=== PATIENT | male | born 1990 | race Caucasian/White ===

== ENCOUNTER 2016-06-18 19:21 | Emergency (ER) | payer MEDICAID ==
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
[2016-06-18 20:35] LABS: Hematocrit 47.6 % (42.0-52.0); Hemoglobin 15.6 gm/dL (13.5-18.0); Mean Cell Volume 89.6 fl (78-100); Mean Corpuscular Hemoglobin 29.4 pg (27-31); Mean Corpuscular Hgb Conc 32.8 g/dl (32-36); Neutrophil # 3.9 K/mm3 (1.3-6.0); Neutrophil % 60.9 % (42-75.0); Platelet Count 223 K/mm3 (150-450); Red Blood Count 5.31 M/mm3 (4.7-6.0); Red Cell Distribution Width 12.3 % (11.5-14.0); White Blood Count 6.5 K/mm3 (4.0-10.5)
--- OUTSIDE RECORDS SUMMARY | 2016-06-18 20:46 | XMS REPORT | Continuity of Care Document ---
:1990 Author Organization [facility] ([facility]) Address [address] [place] [address] Phone [phone] Care Team Providers Name Role Phone Rose Mary Chin Primary Care Provider [phone] Source Comments This disclosure is being made pursuant to the Care Everywhere program, applicable federal and state laws, and may not contain all informaitonavailable regarding this patient.[facility] ([facility]) Active Allergies and Adverse Reactions No Active Allergies Current Medications Not on file Active Problems Problem Noted Date Hypertrophy of breast 04/21/2006 Social History Tobacco Use Types Packs/Day Years Used Date Never Assessed Last Filed Vital Signs Vital Sign Reading Time Taken Blood Pressure 136/57 04/21/2006 1:53 PM AIRPLANE AND ENGINE INSPECTOR Pulse 83 04/21/2006 1:53 PM AIRPLANE AND ENGINE INSPECTOR Temperature 35.6 C (96.08 F) 04/21/2006 1:53 PM AIRPLANE AND ENGINE INSPECTOR Respiratory Rate 28 04/21/2006 1:53 PM AIRPLANE AND ENGINE INSPECTOR Height 1.747 m (5' 8.77") 04/21/2006 1:53 PM AIRPLANE AND ENGINE INSPECTOR Weight 143.396 kg (316 lb 2.1 oz) 04/21/2006 1:53 PM AIRPLANE AND ENGINE INSPECTOR Body Mass Index 46.98 04/21/2006 1:53 PM AIRPLANE AND ENGINE INSPECTOR Oxygen Saturation - - Plan of Care Health Maintenance Due Date Last Done Comments Hepatitis B Vaccine (1 of 3 - Primary Series) 1990 Tdap Vaccine 01/04/2000 Lipid Disorder Screening 2007 MMR Vaccine 2007 Td Vaccine 2007 Varicella Vaccine (1 of 2 - Adult - No Evidence of 2007 Immunity) Influenza Vaccine: Seasonal (#1) 12/11/2015 Results from Last 3 Months Not on file
[2016-06-18 20:57] LABS: ALT 26 U/L (19-67); AST 17 U/L (0-48); Alkaline Phosphatase * 77 U/L (50-170); Anion Gap 10.6 mmol/L (6.8-13.8); Bilirubin, Total 0.3 mg/dL (0.0-1.1); Blood Urea Nitrogen 14 mg/dL (6-23); Ca. Corrected For Albumin 8.6 mg/dL (8.4-10.2); Calcium * 8.9 mg/dL (7.9-10.9); Carbon Dioxide 30.1 mmol/L (24-32.6); Chloride 105 mmol/L (97-106); Glucose * 102 mg/dL (70-110); Potassium 3.7 mmol/L (3.4-4.6); Salicylate Less than 2.8 mg/dL (2.8-20.0); Sodium 142 mmol/L (132-142); TSH * 0.738 uIU/mL (0.358-3.74); Total Protein 7.2 gm/dL (6.2-8.2)
[2016-06-18 21:06] LABS: Urine Bilirubin Negative (NEGATIVE); Urine Blood Negative /ul (NEGATIVE); Urine Ketone Negative (NEGATIVE); Urine Nitrite Negative (NEGATIVE); Urine Protein Negative (NEGATIVE); Urine Urobilinogen Normal (NORMAL)
[2016-06-18 21:19] LABS: Cocaine Ur Negative (NEGATIVE); Urine Barbiturate Negative (NEGATIVE); Urine Benzodiazepines Negative (NEGATIVE); Urine Opiates Negative (NEGATIVE); Urine PCP Negative (NEGATIVE)
[2016-06-18 21:22] LABS: Urine THC Positive (NEGATIVE)
[2016-06-18 21:28] LABS: Urine Appearance Clear; Urine Color Yellow
[2016-06-18 21:29] LABS: Urine Bacteria None Seen; Urine RBC None Seen /hpf (0-5); Urine WBC None Seen /hpf (0-5)
[2016-06-18 21:30] LABS: Urine Mucus Many - 3+
[2016-06-19] MEDS ORDERED: LORazepam 1 MG TABLET PO ONE ×2 (01:04→02:13)
[2016-06-19] MEDS ORDERED: LORazepam 1 MG TABLET ONE ×2 (01:16→02:13)
[2016-06-19 02:18] VITALS: BP 131/91
== END 2016-06-19 02:38 | disposition short-term general hospital (02) ==
LOC: ER 19:21
DX: F22 Delusional disorders (principal)
CPT/HCPCS: 36415; 80053; 80307; 81001; 84443; 85025; 99284; G0480; G0481

== ENCOUNTER 2016-09-19 18:59 | Emergency (ER) | payer MEDICAID ==
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
--- OUTSIDE RECORDS SUMMARY | 2016-09-19 19:28 | XMS REPORT | Continuity of Care Document ---
:1990 Author Organization [facility] ([facility]) Address [place] [address] Phone [phone] Care Team Providers Name Role Phone Rose Mary Chin Primary Care Provider [phone] Source Comments This disclosure is being made pursuant to the Care Everywhere program, applicable federal and state laws, and may not contain all informaitonavailable regarding this patient.[facility] ([facility]) Active Allergies and Adverse Reactions No Active Allergies Current Medications Not on file Active Problems Problem Noted Date Hypertrophy of breast 04/21/2006 Social History Tobacco Use Types Packs/Day Years Used Date Never Assessed Last Filed Vital Signs Vital Sign Reading Time Taken Blood Pressure 136/57 04/21/2006 1:53 PM WEIGHT CALLER Pulse 83 04/21/2006 1:53 PM WEIGHT CALLER Temperature 35.6 C (96.08 F) 04/21/2006 1:53 PM WEIGHT CALLER Respiratory Rate 28 04/21/2006 1:53 PM WEIGHT CALLER Height 1.747 m (5' 8.77") 04/21/2006 1:53 PM WEIGHT CALLER Weight 143.396 kg (316 lb 2.1 oz) 04/21/2006 1:53 PM WEIGHT CALLER Body Mass Index 46.98 04/21/2006 1:53 PM WEIGHT CALLER Oxygen Saturation - - Plan of Care [...]
[2016-09-19 20:02] LABS: Hematocrit 49.4 % (42.0-52.0); Hemoglobin 16.6 gm/dL (13.5-18.0); Mean Cell Volume 86.8 fl (78-100); Mean Corpuscular Hemoglobin 29.2 pg (27-31); Mean Corpuscular Hgb Conc 33.6 g/dl (32-36); Mean Platelet Volume 9.8 fl (6.0-9.5); Neutrophil # 3.3 K/mm3 (1.3-6.0); Neutrophil % 65.9 % (42-75.0); Platelet Count 187 K/mm3 (150-450); Red Blood Count 5.69 M/mm3 (4.7-6.0); Red Cell Distribution Width 12.6 % (11.5-14.0); White Blood Count 4.9 K/mm3 (4.0-10.5)
[2016-09-19 20:26] LABS: ALT 26 U/L (19-67); AST 21 U/L (0-48); Albumin * 3.8 gm/dl (3.4-5.0); Alkaline Phosphatase * 79 U/L (50-170); Anion Gap 14.7 mmol/L (6.8-13.8); Bilirubin, Total 0.6 mg/dL (0.0-1.1); Blood Urea Nitrogen 10 mg/dL (6-23); Calcium * 9.2 mg/dL (7.9-10.9); Carbon Dioxide 28.2 mmol/L (24-32.6); Chloride 103 mmol/L (97-106); Glucose * 101 mg/dL (70-110); Potassium 3.9 mmol/L (3.4-4.6); Salicylate Less than 2.8 mg/dL (2.8-20.0); Sodium 142 mmol/L (132-142); TSH * 1.106 uIU/mL (0.358-3.74); Total Protein 6.9 gm/dL (6.2-8.2)
[2016-09-19 20:38] LABS: Urine Bilirubin Negative (NEGATIVE); Urine Blood Negative /ul (NEGATIVE); Urine Ketone Negative (NEGATIVE); Urine Nitrite Negative (NEGATIVE); Urine Protein Negative (NEGATIVE); Urine Specific Gravity <=1.005 SP.GR. (1.005-1.030); Urine Urobilinogen Normal (NORMAL); Urine pH 6.5 pH (5.0-7.0)
[2016-09-19 20:39] LABS: Cocaine Ur Negative (NEGATIVE); Urine Barbiturate Negative (NEGATIVE); Urine Benzodiazepines Negative (NEGATIVE); Urine Opiates Negative (NEGATIVE); Urine PCP Negative (NEGATIVE)
[2016-09-19 20:40] LABS: Urine THC Positive (NEGATIVE)
[2016-09-19 20:45] LABS: Urine Appearance Clear; Urine Bacteria TRACE; Urine Color Yellow; Urine Mucus TRACE; Urine RBC None Seen /hpf (0-5); Urine WBC None Seen /hpf (0-5)
[2016-09-20 05:53] LABS: Hematocrit 50.1 % (42.0-52.0); Hemoglobin 16.8 gm/dL (13.5-18.0); Mean Corpuscular Hemoglobin 29.2 pg (27-31); Mean Corpuscular Hgb Conc 33.5 g/dl (32-36); Neutrophil # 4.6 K/mm3 (1.3-6.0); Neutrophil % 66.2 % (42-75.0); Platelet Count 212 K/mm3 (150-450); Red Blood Count 5.76 M/mm3 (4.7-6.0); Red Cell Distribution Width 12.6 % (11.5-14.0)
[2016-09-20 06:13] LABS: ALT 27 U/L (19-67); AST 22 U/L (0-48); Albumin * 3.9 gm/dl (3.4-5.0); Alkaline Phosphatase * 83 U/L (50-170); BUN/Creatinine Ratio 9.3 (9.0-21.6); Bilirubin, Total 0.7 mg/dL (0.0-1.1); Blood Urea Nitrogen 9 mg/dL (6-23); Ca. Corrected For Albumin 8.9 mg/dL (8.4-10.2); Calcium * 9.1 mg/dL (7.9-10.9); Carbon Dioxide 30.7 mmol/L (24-32.6); Chloride 102 mmol/L (97-106); Glucose * 97 mg/dL (70-110); Potassium 3.7 mmol/L (3.4-4.6); Salicylate Less than 2.8 mg/dL (2.8-20.0); Sodium 142 mmol/L (132-142); TSH * 2.053 uIU/mL (0.358-3.74); Total Protein 7.2 gm/dL (6.2-8.2)
[2016-09-20] MEDS ORDERED: ZIPRASIDONE HCL 20 MG CAPSULE PO ONE (09:07)
[2016-09-20] MEDS ORDERED: ZIPRASIDONE HCL 20 MG CAPSULE ONE (09:47)
--- NOTE | 2016-09-20 13:33 | ERNOTE ---
Psychological HPI - Date Date of Service: 09/20/16 - General Chief Complaint: Psychiatric Problem Source: Reports: patient, RN/MD, RN notes reviewed Exam Limitations: Reports: no limitations - Immun/Allergies/Home Medications Allergies/Adverse Reactions: Allergies No Known Allergies Allergy (Verified 09/19/16 19:07) Home Medications: HOME MEDICATIONS Adderall 06/18/16 [Last Taken Unknown] Ativan 06/18/16 [Last Taken Unknown] Lamotrigine 06/18/16 [Last Taken Unknown] Omeprazole 06/18/16 [Last Taken Unknown] - History of Present Illness Narrative: Patient presented to ED last night making suicidal statements and extreme irritability. Time Seen by Provider: 09/19/16 19:14 Date (Duration): 09/20/16 Time (Timing): 12:40 Onset/duration: Reports: intermittent Intent: Reports: prior thoughts of suicide, wants to escape Situational Problems: Reports: other - Lives with mother who is disabled. Associated Symptoms: Reports: agitated, hostile, suicidal thoughts Prior Treament: Reports: treated by physician, recently hospitalized, similar symptoms before - Patient states that he has not seen a psychiatrist on a regular basis since Dr. Wren was here. Has been getting psychotropic medications from psychiatrists when IP and PCP. Review of Systems - Narrative Narrative: Patient is quite manic. Speech is rapid and tangential. Admits to racing thoughts, lack of sleep, irritability and anger. States that he was prescribed Haldol while IP and was told to take it but not the Ativan. States that PCP told him to take Ativan. He was confused so wasn't taking any of his medications correctly. PCP is also prescribing him Seroquel 300 mg at hs and Adderall 30 mg twice a day. Has some grandiose delusions but have lessened since injection of Geodon. Denies any hallucinations. Denies any depression. States that he gets "over dramatic" and makes threats of suicide when he gets angry but states that he does not mean it and does not actually wish to . Acknowledges need for medication management and states that both he and his mother have said that he needs to be back on a mood stabilizer. - Review of Systems Psych: Present: See HPI - Narrative Narrative: Discussed past psychiatric care and current psychiatric care. Is not established with a psychiatrist, PCP has been managing his medications. He states that he used to take Trileptal and it worked well for anger and mood swings. He denies that he has a diagnosis of bipolar, states that it is just extreme anger and ADHD. - Patient's Past Medical History Patient History - Medical: No pertinent hx, ADHD, Other Patient History - Cardiac/Respiratory: No pertinent hx Patient History - Cancer: No Hx of Cancer Patient History - Surgical Procedures: T & A Patient History - Other: None - Social History Living Situations: home Abuse History: No History of abuse Smoking Status: Never smoker Alcohol Use: none Drug Use: none - Immunizations Immunizations Up to Date: Yes Physical Exam - Physical Exam General Appearance: Present: wd/wn, alert, mild distress, anxious, irritable Neurological Exam: Present: alert, oriented - Exhibiting signs of alfredo: Pressured, rapid speech, tangential thought process, mild grandoise delusions, increased irritability and anger, impulsivity. ED Progress - Date and Time Seen: Date and Time: 09/20/16 13:29 Discussed R/B/SE of medications. Will continue patient on Quetiapine 300 mg po qhs, Lorazepam 1 mg QID PRN for anxiety, discontinue Haloperidol, hold Adderall until psychiatry appointment and start on Oxcarbazepine 300 mg po BID. Written instructions provided. Followup appointment time provided. Patient voices understanding. I do not feel that patient is an immediate danger to himself or others and that hold should be lifted so he can be discharged to his home. Grinding And Polishing Laborer Analia notified of my recommendations and stated that court ordered hold can be lifted at this time. - Vital Signs Vital Signs: Vital Signs 09/20/16 05:52 Temperature 36.2 C L Pulse Rate 88 Respiratory 18 Rate Blood Pressure 165/89 O2 Sat by Pulse 98 Oximetry - Progress/Reassessment Chief Complaint: Psychiatric Problem Progress:: Improved - Follow up appointment with Deepa CORDON on 09/26/16 at 1pm. Departure Clinical Impression: Suicidal behavior Qualifiers: Attempted self-injury: without attempted self-injury Qualified Code(s): R46.89 - Other symptoms and signs involving appearance and behavior - Departure
[2016-09-20 14:11] VITALS: BP 129/70
== END 2016-09-20 14:07 | disposition home or self-care (01) ==
LOC: ER 18:59
DX: R46.89 Other symptoms and signs involving appearance and behavior (principal)
CPT/HCPCS: 36415; 80053; 80307; 81001; 84443; 85025; 99282; 99285; G0480; G0481

== ENCOUNTER 2016-11-06 04:55 | Emergency (ER) | payer MEDICAID ==
--- NOTE | 2016-11-06 05:38 | ERNOTE ---
<Flynn Thomas - Last Filed: 11/06/16 08:00> Psychological HPI - General Chief Complaint: Psychiatric Problem Source: Reports: patient Exam Limitations: Reports: no limitations - Immun/Allergies/Home Medications Allergies/Adverse Reactions: Allergies No Known Allergies Allergy (Verified 11/06/16 05:35) Home Medications: HOME MEDICATIONS Adderall 06/18/16 [Last Taken Unknown] Ativan 06/18/16 [Last Taken Unknown] Lamotrigine 06/18/16 [Last Taken Unknown] Omeprazole 06/18/16 [Last Taken Unknown] OXcarbazepine [Trileptal] 300 mg PO BID #60 tab 11/06/16 [Last Taken Unknown] QUEtiapine FUMARATE [Seroquel] 300 mg PO HS #30 tablet 11/06/16 [Last Taken Unknown] - History of Present Illness Narrative: Pt's mom called law enforcement stating that the patient was "out of control" and had a knife. Pt then called LE and said that if any officers came into the house he would kill them. Upon arrival pt had a grapple skidder operator knife and was easily able to be talked down and he put the knife down. Pt did come to the ER willingly after law enforcement talked to him for 45 minutes. Pt is delusional stating that he is a genius and that his home life stops him from using his genius in anything constructive so that drives him crazy. He states that he would rather than continue to live under these conditions. Pt has been in this ED under similar conditions. Time Seen by Provider: 11/06/16 05:21 Arrived by: Reports: police Onset/duration: Reports: intermittent, continues in ED Intent: Reports: wants to escape - the world or his life Situational Problems: Reports: parents Associated Symptoms: Reports: angry, frustrated, agitated, paranoid Prior Treament: Reports: similar symptoms before Review of Systems - Review of Systems Constitutional: Present: no symptoms reported EYE: Present: no symptoms reported ENT: Present: no symptoms reported Respiratory: Absent: shortness of breath Cardiology: Absent: chest pain Gastrointestinal/Abdominal: Present: no symptoms reported Genitourinary: Present: no symptoms reported Musculoskeletal: Present: no symptoms reported Skin: Present: no symptoms reported Neurological: Present: depressed, emotional problems Endocrine: Present: no symptoms reported Hematologic/Lymphatic: Present: no symptoms reported Psych: Present: See HPI - Patient's Past Medical History Patient History - Medical: ADHD, GERD Patient History - Cardiac/Respiratory: No pertinent hx Patient History - Cancer: No Hx of Cancer Patient History - Surgical Procedures: T & A Patient History - Other: None - Social History Living Situations: home Abuse History: No History of abuse Psych History: No pertinent hx Smoking Status: Never smoker Alcohol Use: none Drug Use: none - Immunizations Immunizations Up to Date: Yes History of Influenza Vaccine: No Physical Exam - Physical Exam General Appearance: Present: wd/wn, alert, mild distress, anxious Eye Exam: Normal inspection: bilateral Neck: Present: normal inspection, nontender Respiratory: Present: no respiratory distress, no accessory muscle use Back Exam: Present: normal inspection, normal range of motion Extremity Exam: Present: normal range of motion, no edema Neurological Exam: Present: alert, no motor/sensory deficits, milk receiver II-XII nml as tested, other - dilusions of grandeur. believes he is a genius and not recognized as such. Believes the whole world is against him and should be destroyed Skin Exam: Present: normal color, warm/dry ED Progress - Vital Signs Vital Signs: Vital Signs 11/06/16 04:56 Temperature 36.2 C L Pulse Rate 78 Respiratory 20 Rate Blood Pressure 145/90 O2 Sat by Pulse 96 Oximetry - Progress/Reassessment Chief Complaint: Psychiatric Problem Progress:: Unchanged Progress Note-Subjective: 11/06/16 06:54 Pt continues with delusional talk. Talking loudly and forcefully at times but settles down when reminded - Transfer of Care Physician Sign Out: Flynn Thomas Receiving Physician: Rashida Chi Pending Results: Labs - urinalysis, Physician/consult arrival - transfer Expected Disposition: Transfer Departure Clinical Impression: Delusional disorder, Hyponatremia - Departure Disposition: Home self-care Condition: Fair Instructions: Hyponatremia Additional Instructions: Follow-up with her outpatient visit with Deepa Chiu and please take her Seroquel and oxcarbazepine as prescribed. Prescriptions: OXcarbazepine [Trileptal] 300 mg PO BID #60 tab QUEtiapine FUMARATE [Seroquel] 300 mg PO HS #30 tablet <Rashida Chi - Last Filed: 11/06/16 12:20> ED Progress - Vital Signs Vital Signs: Vital Signs 11/06/16 11/06/16 04:56 07:06 Temperature 36.2 C L 36.3 C L Pulse Rate 78 78 Respiratory 20 12 Rate Blood Pressure 145/90 146/78 O2 Sat by Pulse 96 98 Oximetry Plan - Plan Plan: This case was signed out to me by the previous provider. Patient has been in the room he has been calm he is speaking nonstop. After consultation with Deepa mendes. The patient has not followed up there is a patient visits with Deepa Chiu he is out of his Seroquel 500 mg daily at bedtime and oxcarbazepine 300 mg twice a day the medications will be reinstituted, additionally patient's sodium was 121 which is unacceptable summary the patient will be given a normal saline bolus and encourage some sodium rich foods and we will recheck his sodium following of these therapeutic modalities. A repeat sodium on this patient revealed a sodium of 140 after IV fluids and chips he is stable to be discharged to take his medication and follow up with Deepa Finch.
[2016-11-06 06:12] LABS: Hematocrit 49.6 % (42.0-52.0); Hemoglobin 16.5 gm/dL (13.5-18.0); Mean Cell Volume 87.8 fl (78-100); Mean Corpuscular Hemoglobin 29.2 pg (27-31); Mean Corpuscular Hgb Conc 33.3 g/dl (32-36); Neutrophil # 5.3 K/mm3 (1.3-6.0); Neutrophil % 74.1 % (42-75.0); Platelet Count 248 K/mm3 (150-450); Red Blood Count 5.65 M/mm3 (4.7-6.0); Red Cell Distribution Width 12.6 % (11.5-14.0); White Blood Count 7.1 K/mm3 (4.0-10.5)
[2016-11-06 06:35] LABS: ALT 30 U/L (19-67); AST 19 U/L (0-48); Albumin * 4.3 gm/dl (3.4-5.0); Alkaline Phosphatase * 77 U/L (50-170); BUN/Creatinine Ratio 23.4 (9.0-21.6); Bilirubin, Total 0.4 mg/dL (0.0-1.1); Blood Urea Nitrogen 22 mg/dL (6-23); Calcium * 9.6 mg/dL (7.9-10.9); Carbon Dioxide 28.1 mmol/L (24-32.6); Chloride 96 mmol/L (97-106); Glucose * 105 mg/dL (70-110); Potassium 3.7 mmol/L (3.4-4.6); Salicylate Less than 2.8 mg/dL (2.8-20.0); Sodium 121 mmol/L (132-142); TSH * 0.968 uIU/mL (0.358-3.74); Total Protein 7.8 gm/dL (6.2-8.2)
[2016-11-06] MEDS ORDERED: NORMAL SALINE 1,000 ML IV ONE (09:45)
[2016-11-06 10:59] LABS: Urine Bilirubin Negative (NEGATIVE); Urine Blood Negative /ul (NEGATIVE); Urine Ketone 5 mg/dL (NEGATIVE); Urine Nitrite Negative (NEGATIVE); Urine Protein Negative (NEGATIVE); Urine Specific Gravity 1.025 SP.GR. (1.005-1.030); Urine Urobilinogen Normal (NORMAL)
[2016-11-06 11:09] LABS: Urine Appearance Clear; Urine Bacteria None Seen; Urine Color Yellow; Urine RBC None Seen /hpf (0-5); Urine WBC None Seen /hpf (0-5)
[2016-11-06 11:24] LABS: Cocaine Ur Negative (NEGATIVE); Urine Barbiturate Negative (NEGATIVE); Urine Benzodiazepines Negative (NEGATIVE); Urine Opiates Negative (NEGATIVE); Urine PCP Negative (NEGATIVE)
[2016-11-06 11:27] LABS: Urine THC Positive (NEGATIVE)
[2016-11-06 11:45] LABS: Albumin * 3.8 gm/dl (3.4-5.0); Anion Gap 6.2 mmol/L (6.8-13.8); BUN/Creatinine Ratio 18.5 (9.0-21.6); Bilirubin, Total 0.3 mg/dL (0.0-1.1); Ca. Corrected For Albumin 8.8 mg/dL (8.4-10.2); Carbon Dioxide 31.5 mmol/L (24-32.6); Potassium 3.7 mmol/L (3.4-4.6); Total Protein 7.1 gm/dL (6.2-8.2)
[2016-11-06 12:43] VITALS: BP 160/80
== END 2016-11-06 12:47 | disposition home or self-care (01) ==
LOC: ER 04:55
DX: F22 Delusional disorders (principal); E87.1 Hypo-osmolality and hyponatremia
CPT/HCPCS: 36415; 80053; 80307; 81001; 84443; 85025; 99285; G0480; G0481

== ENCOUNTER 2017-01-18 21:26 | Emergency (ER) | payer MEDICAID ==
[2017-01-18] MEDS ORDERED: HALOPERIDOL LACTATE 5 MG/ML VIAL IM ONE (21:40)
[2017-01-18] MEDS ORDERED: LORazepam 2 MG/ML DISP.SYRIN IM ONE (21:40)
[2017-01-18] MEDS ORDERED: LORazepam 2 MG/ML DISP.SYRIN ONE (21:41)
[2017-01-18] MEDS ORDERED: HALOPERIDOL LACTATE 5 MG/ML VIAL ONE (21:41)
--- NOTE | 2017-01-18 21:49 | ERNOTE ---
Psychological HPI - Date Date of Service: 01/18/17 - General Source: Reports: patient - Immun/Allergies/Home Medications Immunizations: This is a 27-year-old male brought in custody by the police. He was under arrest. The patient has a history of explosive disorder, other psychiatric illnesses. The patient says he has not been taking his medicine for the last month because he doesn't know which medicines to take. He says that his psychiatrist told him to take one medicine but his family doctor tells him to take another. The patient says that he is horribly horribly confused and hasn' t been taking any of them. When asked about his other when necessary medicines he says he hasn't been taking those either. Apparently the police were called out to his house today. They state that they have been out there multiple times in the past. The patient has a history of verbally assaulting his family and threatening them. He does have access to guns and weapons. This evening they attempted to diffuse the situation with the patient however he would not calm down. He was placed under arrest. At that point the patient started saying he wanted to come to the emergency department so "I could talk to a psychiatrist and U could just let me go home" The patient specifically denies suicidal or homicidal ideations. He denies visual or auditory hallucinations. He is supposed to be taking Ativan, Adderall, Haldol, Zyrtec, heterocyclic antidepressant for sleep. The patient admits that he is frustrated and really wanted to just be able to go home. He denies any other specific complaints. Allergies/Adverse Reactions: Allergies No Known Allergies Allergy (Verified 11/06/16 05:35) Home Medications: HOME MEDICATIONS Adderall 06/18/16 [Last Taken Unknown] Ativan 06/18/16 [Last Taken Unknown] Lamotrigine 06/18/16 [Last Taken Unknown] Omeprazole 06/18/16 [Last Taken Unknown] OXcarbazepine [Trileptal] 300 mg PO BID #60 tab 11/06/16 [Last Taken Unknown] QUEtiapine FUMARATE [Seroquel] 300 mg PO HS #30 tablet 11/06/16 [Last Taken Unknown] - History of Present Illness Time Seen by Provider: 01/18/17 21:29 Review of Systems - Review of Systems Constitutional: Present: no symptoms reported EYE: Present: no symptoms reported ENT: Present: no symptoms reported Respiratory: Present: no symptoms reported Cardiology: Present: no symptoms reported Gastrointestinal/Abdominal: Present: no symptoms reported Genitourinary: Present: no symptoms reported Musculoskeletal: Present: no symptoms reported Skin: Present: no symptoms reported Neurological: Present: no symptoms reported Endocrine: Present: no symptoms reported Hematologic/Lymphatic: Present: no symptoms reported Psych: Present: other - anxiety and depressed - Patient's Past Medical History Patient History - Medical: ADHD, GERD Patient History - Cardiac/Respiratory: No pertinent hx Patient History - Cancer: No Hx of Cancer Patient History - Surgical Procedures: T & A Patient History - Other: None - Social History Living Situations: home Abuse History: No History of abuse Psych History: No pertinent hx Alcohol Use: none Drug Use: none - Immunizations Immunizations Up to Date: Yes History of Influenza Vaccine: No Psychological Exam - Exam General Appearance: Present: wd/wn, alert, no apparent distress, other - this is a disheveled poorly kempt male sitting in bed in no apparent distress. He is speaking rather rapidly. Head Exam: Present: normal inspection, no evidence of injury Neurological: Present: alert, other - patient is somewhat agitated. Thoughts/Hallucinations: Present: no apparent hallucination, flight of ideas, other - somewhat pressured speech. Denies hallucinations. Absent: auditory hallucinations, delusions, grandiose, incoherent, paranoid, persecution, phobic , taoism, tactile hallucinations, visual hallucinations Behavior/Eye Contact/Speech: Present: increased rate of speech, other - poor eye contact. Reasonable insight. ENT Exam normal except (see below): Yes Eye Exam: Normal inspection: bilateral Ears, Nose, Throat: Present: normal ENT inspection, normal pharynx Neck: Present: normal inspection, nontender Respiratory: Present: no respiratory distress, normal breath sounds, no accessory muscle use, lungs clear Cardiovascular/Chest: Present: regular rate, rhythm, no murmur, normal peripheral pulses Gastrointestinal/Abdominal: Present: normal bowel sounds, nontender, nondistended Back Exam: Present: normal inspection, normal range of motion, no CVA tenderness Extremity Exam: Present: normal inspection, non-tender, no edema Skin Exam: Present: normal color, warm/dry, no cyanosis Lymphatic Exam: Present: no adenopathy Plan - Plan Plan: This is a 27-year-old gentleman with a long history of psychiatric illness under the care of a psychiatrist and a family doctor. He has become confused about what he is supposed to be taking. He states that he is getting conflicting information from his doctor and psychiatrist. His attempt to resolve this conflict with not take anything. He says "if you take something and her doctor told her not to take it, you can get in trouble" The patient is here under arrest. It was only when he was placed under arrest and placed in the squad car that he requested, to the hospital. He says that he came out here in an attempt to get medicine, and down without that the police would let him go rather than arresting him. The patient specifically denies suicidal or homicidal ideations this denies hallucinations either visual or auditory. The patient is not a candidate for an involuntary hold. The patient has his medicines at home and he does not has not been taking them. I discussed with him the importance of talking to his psychiatrist and following with his psychiatrist recommends. His family doctor should not be determining what medicines he takes. I'm going to give him some medicines to help calm him down here. I think a dose of Haldol and a small dose of Ativan would be appropriate. He will be released into the care of the police. Again he has no suicidal or homicidal ideation or gestures. He does not appear to be acutely psychotic. Departure Clinical Impression: Agitation - Departure Disposition: Prison Condition: Stable Additional Instructions: As we discussed, I do not get to decide if you are being arrested. This is between U and the police. Urine expressed concern about not knowing which medicines to take saying that your psychiatrist and family doctor if getting conflicting orders. YOU should take the medicines as prescribed by your psychiatrist. Do not allow your family doctor to alter your psychiatric medicines under any circumstances. When you are released from custodial you need to call your family doctor and set up an appointment. Call your psychiatrist and set up an appointment. If he finds himself getting out of control use and certainly come to the emergency department to try and get help, but you need to do this before you're placed under arrest. If he develop any new concerning symptoms she should return to the ER. Again take the medicines that your psychiatrist is recommending. Do not like your family doctor determine which psychiatric medicines you are not taking.
[2017-01-18 22:16] VITALS: BP 132/87
== END 2017-01-18 22:08 ==
LOC: ER 21:26
DX: R45.1 Restlessness and agitation (principal)